=== PATIENT | male | born 1975 ===

== ENCOUNTER 2020-11-18 11:12 | Emergency (ER) | payer OTHER ==
[2020-11-18] MEDS ORDERED: Lidocaine 1% 30 ML SDV INJECT ONE (11:15)
--- NOTE | 2020-11-18 11:37 | EDM.PDOC ---
ED HPI GENERAL MEDICAL PROBLEM - General Chief Complaint: Upper Extremity Injury/Pain Stated Complaint: fish hook Time Seen by Provider: 11/18/20 11:20 Source of Information: Reports: Patient History Limitations: Reports: No Limitations - History of Present Illness INITIAL COMMENTS - FREE TEXT/NARRATIVE: fish hook to the right index finger while fishing this morning Onset: Sudden Duration: Minutes: (40) Location: Reports: Upper Extremity, Right Review of Systems - Review of Systems Review Of Systems: See Below Constitutional: Reports: No Symptoms Eyes: Reports: No Symptoms Ears: Reports: No Symptoms Respiratory: Reports: No Symptoms Cardiovascular: Reports: No Symptoms GI/Abdominal: Reports: No Symptoms Musculoskeletal: Reports: No Symptoms Neurological: Reports: No Symptoms ED EXAM, GENERAL - Physical Exam Exam: See Below Exam Limited By: No Limitations General Appearance: Alert, WD/WN, No Apparent Distress Eye Exam: Bilateral Eye: EOMI Head: Atraumatic Neck: Normal Inspection Respiratory/Chest: No Respiratory Distress Cardiovascular: Normal Peripheral Pulses Neurological: Alert, Oriented, No Motor/Sensory Deficits Skin Exam: Other (fish shook to the tip of the right index ) Course - Vital Signs Last Recorded V/S: Last Vital Signs Temp 36.6 C 11/18/20 11:25 Pulse 77 11/18/20 11:25 Resp 16 11/18/20 11:25 BP 132/99 H 11/18/20 11:25 Pulse Ox 96 11/18/20 11:25 - Re-Assessments/Exams Free Text/Narrative Re-Assessment/Exam: wound was washed and cleaned local anesthesia with lidocaine 1% removal of fish shook without complications bacitracin and sterile dressing Departure - Departure Time of Disposition: 11:36 Disposition: Home, Self-Care 01 Condition: Good Clinical Impression: Fish hook injury of right index finger Qualifiers: Encounter type: initial encounter Qualified Code(s): S69.91XA - Unspecified injury of right wrist, hand and finger(s), initial encounter - Discharge Information *PRESCRIPTION DRUG MONITORING PROGRAM REVIEWED*: Not Applicable *COPY OF PRESCRIPTION DRUG MONITORING REPORT IN PATIENT PINO: Not Applicable Instructions: Skin Foreign Body Forms: ED Department Discharge Additional Instructions: - apply antibiotic ointment on the wound once daily - watch for signs of wound infection - follow up with your PCP as needed Sepsis Event Note (ED) - Evaluation Sepsis Screening Result: No Definite Risk - Focused Exam Vital Signs: Vital Signs Temp Pulse Resp BP Pulse Ox 11/18/20 11:25 36.6 C 77 16 132/99 H 96 - Problem List & Annotations (1) Fish hook injury of right index finger SNOMED Code(s): 09919408 Code(s): S69.91XA - UNSP INJURY OF RIGHT WRIST, HAND AND FINGER(S), INIT ENCNTR Status: Acute Priority: Low Qualifiers: Encounter type: initial encounter Qualified Code(s): S69.91XA - Unspecified injury of right wrist, hand and finger(s), initial encounter - Problem List Review Problem List Initiated/Reviewed/Updated: Yes - Assessment/Plan Plan: - apply antibiotic ointment on the wound once daily - watch for signs of wound infection - follow up with your PCP as needed
== END 2020-11-18 11:40 | disposition home or self-care (01) ==
LOC: LB.ED 11:12
DX: S60.450A Superficial foreign body of right index finger, initial encounter (principal); W45.8XXA Other foreign body or object entering through skin, initial encounter
CPT/HCPCS: 99282